=== PATIENT | female | born 1980 ===

== ENCOUNTER 2016-11-21 09:02 | Day surgery (SDC) | payer OTHER ==
[2016-11-21 09:24] VITALS: BMI 23.8
[2016-11-21 09:46] VITALS: O2SAT 100
[2016-11-21] MEDS ORDERED: Propofol 10 mg/ml Inj (20 ML) ONE (10:35)
[2016-11-21 11:04] VITALS: TEMP 97.9
[2016-11-21 12:57] VITALS: RESP 16
[2016-11-21 12:59] VITALS: BP 118/66; PULSE 68
== END 2016-11-21 12:15 | disposition home or self-care (01) ==
LOC: C.ENDO 09:02
PROVIDERS: ATTEND Internal Medicine Gastroenterology
DX: K29.50 Unspecified chronic gastritis without bleeding (principal); B96.81 Helicobacter pylori [H. pylori] as the cause of diseases classified elsewhere; K21.9 Gastro-esophageal reflux disease without esophagitis; K59.00 Constipation, unspecified
CPT/HCPCS: 43239; 84703; 88305; J2001; J2704; J3010